=== PATIENT | female | born 1965 | race Caucasian/White ===

== ENCOUNTER 2022-09-08 21:40 | Outpatient (CLI) | payer OTHER | END 2022-09-08 23:59 | disposition critical access hospital (66) | LOC: EMS 21:40 | DX: S69.91XA Unspecified injury of right wrist, hand and finger(s), initial encounter (principal); S59.911A Unspecified injury of right forearm, initial encounter; W01.0XXA Fall on same level from slipping, tripping and stumbling without subsequent striking against object, initial encounter | CPT/HCPCS: A0425; A0427 ==

== ENCOUNTER 2022-09-08 22:21 | Emergency (ER) | payer OTHER ==
--- NOTE | 2022-09-08 22:43 | ED Physician Documentation ---
PD HPI UPPER EXT INJURY - Stated complaint Stated Complaint: R WRIST PX - History obtained from History obtained from: Patient - History of Present Illness Location: Right, Wrist Type of injury: Fall Pain level max: 8 Pain level now: 8 Improved by: Rest, Ice, Immobilization Worsened by: Moving, Palpating Associated symptoms: Swelling. No: Weakness, Numbness, Tingling Contributing factors: No: Anticoagulated - Additonal information Additional information: Patient is a 56-year-old female who presents to the emergency department complaining of right wrist pain. She was getting out of a boat today when she slipped fell injuring the right wrist. No head, neck, back pain. Worse with movement, better with rest. She received morphine with EMS. Not anticoagulated. Patient is right-handed. Review of Systems Constitutional: denies: Fever, Chills GI: denies: Vomiting, Diarrhea Skin: denies: Rash Musculoskeletal: denies: Neck pain, Back pain Neurologic: denies: Headache PD PAST MEDICAL HISTORY - Past Medical History Past Medical History: No - Past Surgical History Past Surgical History: No - Present Medications Home Medications: Ambulatory Orders Medication Instructions Recorded Confirmed HYDROcod/ACETAM 5/325 [[place] 5/325] 1 - 2 ea PO Q6H PRN #14 tablet 09/08/22 - Allergies Allergies/Adverse Reactions: Allergies Allergy/AdvReac Type Severity Reaction Status Date / Time Sulfa (Sulfonamide Allergy Rash Verified 09/08/22 23:16 Antibiotics) - Living Situation Living Situation: reports: With family Living Arrangement: reports: At home - Social History Does the pt drink ETOH?: Yes - Family History Family history: reports: Non contributory - Immunizations Immunizations are current?: Yes PD ED PE NORMAL - Vitals Vital signs reviewed: Yes - General General: Alert and oriented X 3, No acute distress - HEENT HEENT: Moist mucous membranes - Derm Derm: Warm and dry - Extremities Extremities: Other (Mild swelling and deformity to the right wrist. Neurovascular intact. 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, No motor deficit, No sensory deficit, Normal speech Results - Vitals Vitals: Vital Signs - 24 hr 09/08/22 09/08/22 23:11 23:53 Temperature 36.8 C Heart Rate 79 88 Respiratory 18 18 Rate Blood Pressure 128/79 142/89 H O2 Saturation 99 97 Oxygen O2 Source Room air - Rads (name of study) Right wrist x-ray Relevant Findings:: EMP independent interpretation of test Procedures - Splint (location) - Minor R arm Splint applied by: Physician, Nurse Type of splint: Fiberglass, Short arm, Volar cock up Other: Patient tolerated well, No complications, Neurovascular intact, Sling provided PD Medical Decision Making - ED course Complexity details: reviewed results, re-evaluated patient, considered differ ential, d/w patient ED course: 56-year-old female with a distal radius fracture. Placed in a volar splint. Pain well controlled. Neurovascular intact. No reduction required. GCS 15. No head injury. No neck or back pain. We will have her follow-up with her orthopedist of choice as an outpatient. Patient counseled regarding signs and symptoms for which I believe and urgent re-evaluation would be necessary. Patient with good understanding of and agreement to plan and is comfortable going home at this time This document was made in part using voice recognition software. While efforts are made to proofread this document, sound alike and grammatical errors may occur. Departure - Departure Disposition: Home, Self Care Clinical Impression: Distal radius fracture, right Qualifiers: Encounter type: initial encounter Fracture type: closed Fracture morphology: unspecified fracture morphology Qualified Code(s): S52.501A - Unspecified fracture of the lower end of right radius, initial encounter for closed fracture Condition: Stable Instructions: ED Fx Forearm Radius Ulna No Redu Requ Follow-Up: Orthopedic Care [Provider Group] - Within 1 week Prescriptions: HYDROcod/ACETAM 5/325 [[place] 5/325] 1 - 2 ea PO Q6H PRN #14 tablet PRN Reason: Pain Comments: You have a distal radius fracture. We have placed you in a splint tonight, you will likely need to be changed into a cast in about 1 week. Depending on the involvement in the articular surface of the wrist, these fractures can occasionally require surgery. Please make sure you follow-up closely with orthopedics. Your prescriptions were sent to [facility] in [place]. I am prescribing a short course of narcotic pain medication for you. These are potentially dangerous and addictive medications that should be used carefully. These medications may constipate you. Take an cvie-izv-cirxguw stool softener (docusate) twice daily with plenty of water while taking these medications. If you go 24 hours without a bowel movement, take orug-dux-aoxcsxe miralax, per package instructions. Do not drink or drive while taking these medications. If you received narcotic or sedating medications while in the emergency department, do not drive for 24 hours. Store this medication in a safe, secure place and out of reach of children. It is a violation of federal law to give or sell this medication to another person or to use in a manner other than prescribed. The ED will not refill narcotic prescriptions, including prescriptions lost or stolen. To dispose of unwanted medications: 1. [facility] at [address] in [place] has a medication drop box. They accept prescription medications (in pill form) Sunday through Sunday 9:00 a.m. to 5:00 p.m. 2. The [facility] [place] [employer] accepts prescription medications (in pill form only) for disposal year round. Call for more information. 3. Contact the [facility] for the next [facility] sponsored prescription drug collection event. , [phone], or [phone]; FINDINGS: Bones: There is a comminuted mildly impacted and angulated fracture of the distal radius extending to the distal radial articular surface. Questionable additional small nondisplaced fracture at the dorsal aspect of the proximal carpal row seen on one of 2 lateral views only. Soft tissues: No suspicious soft tissue calcifications or masses. Soft tissue edema seen surrounding the wrist. IMPRESSION: 1.Comminuted mildly impacted intra-articular fracture of the distal radius with mild dorsal angulation. 2.Questionable small nondisplaced fracture of the dorsal aspect of the proximal carpal row seen on one view only. Discharge Date/Time: 09/08/22 23:53
--- NOTE | 2022-09-08 23:09 | XRAY Report ---
PROCEDURE: Wrist 4 View RT INDICATIONS: fall, wrist pain TECHNIQUE: 3 views of the wrist were acquired. COMPARISON: None. FINDINGS: Bones: There is a comminuted mildly impacted and angulated fracture of the distal radius extending t o the distal radial articular surface. Questionable additional small nondisplaced fracture at the raheem anne aspect of the proximal carpal row seen on one of 2 lateral views only. Soft tissues: No suspicious soft tissue calcifications or masses. Soft tissue edema seen surrounding the wrist. IMPRESSION: 1.Comminuted mildly impacted intra-articular fracture of the distal radius with mild dorsal angulatio n. 2.Questionable small nondisplaced fracture of the dorsal aspect of the proximal carpal row seen on on e view only. Reviewed by: Francis Jay MD on 09/08/2022 11:08 PM PDT Approved by: Francis Jay MD on 09/08/2022 11:08 PM PDT Station ID: [id number]
[2022-09-08] MEDS ORDERED: HYDROcod/ACETAM 5/325 MG TABLET PO STA (23:16)
[2022-09-08] MEDS ORDERED: HYDROcod/ACET 5/325 Prepack 4 PO STA (23:17)
[2022-09-08 23:57] VITALS: BP 142/89
== END 2022-09-08 23:53 | disposition home or self-care (01) ==
LOC: EDBD → ED 22:21
DX: S52.571A Other intraarticular fracture of lower end of right radius, initial encounter for closed fracture (principal); V94.0XXA Hitting object or bottom of body of water due to fall from watercraft, initial encounter; Y93.89 Activity, other specified
CPT/HCPCS: 29125; 73110; 99283; A9270